=== PATIENT | female | born 1950 | race Caucasian/White ===

== ENCOUNTER 2016-12-21 18:23 | Emergency (ER) | payer MEDICARE ==
[~2016-12-21] VITALS: Ht 172.7 cm; Wt 49.0 kg
[~2016-12-21 18:23] MED LIST: ALPR-475 PO; ASCO10004 PO; CALC-570 PO; CLON-364 PO; COCO1000 PO; METO25TA35 PO; MULT-672 PO; OMEG1CAP39 PO; UBID100C24 PO; ZOLP10TA5 PO
[2016-12-21] MEDS ORDERED: IBUPROFEN 800 MG TABLET PO STA (18:40)
[2016-12-21] MEDS ORDERED: CEFTRIAXONE PMX 1GM/50ML 50 ML IV ONE (19:00)
[2016-12-21] MEDS ORDERED: SODIUM CHLORIDE FLUSH 10ML SYR IVF ONE (19:00)
[2016-12-21] MEDS ORDERED: SODIUM CHLORIDE 0.9% 1,000ML IVBOLUS ONE (19:00)
[2016-12-21] MEDS ORDERED: ONDANSETRON 2MG/ML, 2ML IVPush ONE (19:00)
[2016-12-21] MEDS ORDERED: ONDANSETRON 2MG/ML, 2ML ONE (19:26)
[2016-12-21] MEDS ORDERED: IBUPROFEN 200 MG TABLET ONE (19:26)
[2016-12-21] MEDS ORDERED: CEFTRIAXONE PMX 1GM/50ML 50 ML ONE (19:27)
[2016-12-21 19:49] LABS: HEMOGLOBIN 13.2 g/dL (11.7-16.4)
[2016-12-21 20:07] LABS: ASPARTATE AMINO TRANSFERASE 33 U/L (15-37); BLOOD UREA NITROGEN 10 mg/dL (7-18)
[2016-12-21 21:00] VITALS: BP 118/54
[2016-12-21 21:33] LABS: RAPID INFLUENZA A Negative (Negative); RAPID INFLUENZA B Negative (Negative)
== END 2016-12-21 21:44 | disposition home or self-care (01) ==
LOC: ED 21:20
DX: J18.1 Lobar pneumonia, unspecified organism (principal); Z87.891 Personal history of nicotine dependence
CPT/HCPCS: 36415; 71020; 80053; 83605; 84145; 85025; 87040; 87400; 93005; 96365; 96375; 99285; J0696; J2405; J7030

== ENCOUNTER → 2017-01-30 | Outpatient (CLI) | payer MEDICARE | END | disposition home or self-care (01) | LOC: ROC 10:53 | PROVIDERS: ATTEND Radiology Radiation Oncology | DX: C50.911 Malignant neoplasm of unspecified site of right female breast (principal); Z17.0 Estrogen receptor positive status [ER+]; R00.2 Palpitations; Z85.3 Personal history of malignant neoplasm of breast; Z92.3 Personal history of irradiation | CPT/HCPCS: G0463 ==

== ENCOUNTER → 2017-07-25 | Outpatient (CLI) | payer MEDICARE ==
[~2017-07-25] MED LIST changes: +GADOBUTROL 10 MMOL/10 ML VIAL ONE
== END | disposition home or self-care (01) ==
LOC: CFH 12:42
PROVIDERS: ATTEND Radiology Radiation Oncology
DX: Z85.3 Personal history of malignant neoplasm of breast (principal); Z90.13 Acquired absence of bilateral breasts and nipples
CPT/HCPCS: A9585; C8908

== ENCOUNTER 2018-04-05 22:51 | Emergency (ER) | payer MEDICARE ==
[~2018-04-05] VITALS: Ht 170.2 cm; Wt 50.0 kg
[~2018-04-05 22:51] MED LIST changes: -CLON-364 PO; +CLON0.5T11 PO; -GADOBUTROL 10 MMOL/10 ML VIAL ONE
[2018-04-05 22:53] VITALS: BP 145/81
[2018-04-05] MEDS ORDERED: LIDOCAINE-MPF 1%, 2ML ONE (23:02)
[2018-04-05] MEDS ORDERED: ATOR20TA9 PO (23:11)
[2018-04-05] MEDS ORDERED: DIPH,PERTUSS(ACELL),TET VAC/PF 0.5 ML IM-VACC ONE (23:38)
[2018-04-06] MEDS ORDERED: DIPH,PERTUSS(ACELL),TET VAC/PF 0.5 ML IM-VACC ONE
== END 2018-04-05 23:55 | disposition home or self-care (01) ==
LOC: ED 23:49
DX: S01.01XA Laceration without foreign body of scalp, initial encounter (principal); E78.5 Hyperlipidemia, unspecified; W01.0XXA Fall on same level from slipping, tripping and stumbling without subsequent striking against object, initial encounter; Y93.89 Activity, other specified; Y92.007 Garden or yard of unspecified non-institutional (private) residence as the place of occurrence of the external cause; Y99.8 Other external cause status
CPT/HCPCS: 90471; 90715

== ENCOUNTER → 2018-07-28 | Outpatient (CLI) | payer MEDICARE ==
[~2018-07-28] MED LIST changes: +ATOR20TA9 PO; +GADOBUTROL 7.5 MMOL/7.5 ML VIAL ONE
== END | disposition home or self-care (01) ==
LOC: CFH 12:45
PROVIDERS: ATTEND Internal Medicine Hematology & Oncology
DX: C50.511 Malignant neoplasm of lower-outer quadrant of right female breast (principal); R04.0 Epistaxis; B95.62 Methicillin resistant Staphylococcus aureus infection as the cause of diseases classified elsewhere; M85.9 Disorder of bone density and structure, unspecified; Z79.811 Long term (current) use of aromatase inhibitors
CPT/HCPCS: A9585; C8908

== ENCOUNTER → 2018-08-20 | Outpatient (CLI) | payer MEDICARE ==
[~2018-08-20] MED LIST changes: +ATOR20TA37 PO; -ATOR20TA9 PO; -GADOBUTROL 7.5 MMOL/7.5 ML VIAL ONE
== END | disposition home or self-care (01) ==
LOC: ROC 07:36
PROVIDERS: ATTEND Radiology Radiation Oncology
DX: Z08 Encounter for follow-up examination after completed treatment for malignant neoplasm (principal); F41.8 Other specified anxiety disorders; Z85.3 Personal history of malignant neoplasm of breast; Z92.3 Personal history of irradiation
CPT/HCPCS: G0463

== ENCOUNTER → 2019-03-03 | Outpatient (CLI) | payer MEDICARE | END | disposition home or self-care (01) | LOC: CFH 14:13 | PROVIDERS: ATTEND Obstetrics & Gynecology Gynecology | DX: N64.4 Mastodynia (principal); Z85.3 Personal history of malignant neoplasm of breast | CPT/HCPCS: 76642; 77066; G0279 ==

== ENCOUNTER → 2019-08-03 | Outpatient (CLI) | payer MEDICARE ==
[~2019-08-03] MED LIST changes: -ALPR-475 PO; +ALPR0.5T7 PO; +GADOTERATE 5 MMOL/10 ML VIAL ONE
== END | disposition home or self-care (01) ==
LOC: CFH 12:03
PROVIDERS: ATTEND Radiology Radiation Oncology
DX: Z12.31 Encounter for screening mammogram for malignant neoplasm of breast (principal); N64.89 Other specified disorders of breast; Z85.3 Personal history of malignant neoplasm of breast; Z87.891 Personal history of nicotine dependence
CPT/HCPCS: 77049; 77063; 77067; A9575; C8937; C8908

== ENCOUNTER → 2019-08-20 | Outpatient (CLI) | payer MEDICARE ==
[~2019-08-20] MED LIST changes: -GADOTERATE 5 MMOL/10 ML VIAL ONE
== END | disposition home or self-care (01) ==
LOC: ROC 09:30
PROVIDERS: ATTEND Radiology Radiation Oncology
DX: Z08 Encounter for follow-up examination after completed treatment for malignant neoplasm (principal); Z85.3 Personal history of malignant neoplasm of breast; Z92.3 Personal history of irradiation; Z79.84 Long term (current) use of oral hypoglycemic drugs; Z79.899 Other long term (current) drug therapy; Z79.891 Long term (current) use of opiate analgesic; Z79.02 Long term (current) use of antithrombotics/antiplatelets
CPT/HCPCS: G0463

== ENCOUNTER 2020-03-16 13:22 | Outpatient (CLI) | payer MEDICARE ==
[~2020-03-16 13:22] MED LIST changes: +ASCO100018 PO; -ASCO10004 PO; +CLON-364 PO; -CLON0.5T11 PO
== END 2020-03-16 23:59 | disposition home or self-care (01) ==
LOC: CFH 13:22
PROVIDERS: ATTEND Family Medicine
DX: M25.422 Effusion, left elbow (principal); S42.402A Unspecified fracture of lower end of left humerus, initial encounter for closed fracture; X58.XXXA Exposure to other specified factors, initial encounter; Y93.89 Activity, other specified; Y92.89 Other specified places as the place of occurrence of the external cause; Y99.8 Other external cause status

== ENCOUNTER → 2020-08-09 | Outpatient (CLI) | payer MEDICARE ==
[~2020-08-09] MED LIST changes: +GADOTERATE 10 MMOL/20 ML VIAL ONE
== END | disposition home or self-care (01) ==
LOC: CFH 12:02
PROVIDERS: ATTEND Radiology Radiation Oncology
DX: Z12.31 Encounter for screening mammogram for malignant neoplasm of breast (principal); C50.511 Malignant neoplasm of lower-outer quadrant of right female breast; Z80.3 Family history of malignant neoplasm of breast
CPT/HCPCS: 77049; 77063; 77067; A9575; C8937; C8908